=== PATIENT | male | born 1950 | race Caucasian/White ===

== ENCOUNTER 2025-02-08 14:00 | Outpatient (RCR) | payer MEDICARE, SELFPAY | END 2025-03-28 10:00 | disposition home or self-care (01) | LOC: CR 14:00 | PROVIDERS: Visit Provider Internal Medicine Cardiovascular Disease | DX: I35.1 Nonrheumatic aortic (valve) insufficiency (principal); I25.118 Atherosclerotic heart disease of native coronary artery with other forms of angina pectoris; I25.5 Ischemic cardiomyopathy; I11.0 Hypertensive heart disease with heart failure; I50.22 Chronic systolic (congestive) heart failure; R94.31 Abnormal electrocardiogram [ECG] [EKG] | CPT/HCPCS: 93798 ==